=== PATIENT | female | born 1960 | race Caucasian/White ===

== ENCOUNTER 2023-04-15 19:56 | Inpatient (IN) | payer OTHER ==
[~2023-04-15] VITALS: Ht 167.6 cm; Wt 83.9 kg
[2023-04-15 20:00] VITALS: BP 164/73; PULSE 109; RESP 27; O2SAT 100
[2023-04-15 20:04] VITALS: BP 152/88; PULSE 104; RESP 19; TEMP 98.4; O2SAT 99
[2023-04-15] MEDS: MORPHINE SULFATE 4 MG/ML SYR IVP ONE (20:46)
[2023-04-15 21:04] LABS: BLOOD GAS BASE EXCESS 1.4 mmol/L (-2.0-2.0); BLOOD GAS HCO3 25.6 mmol/L (22-26); BLOOD GAS PCO2 38.7 mmHg (35-45); BLOOD GAS PH 7.439 (7.35-7.45); BLOOD GAS PO2 79.6 mmHg (75-100)
[2023-04-15 21:05] LABS: BLOOD GAS O2 SAT% 95.3 % (92.0-98.5)
[2023-04-15 21:09] LABS: BASOPHILS % (AUTO) 0.1 % (0.0-2.0); LYMPHOCYTES # (AUTO) 0.6 K/uL (2.5-16.5); LYMPHOCYTES % (AUTO) 7.9 % (20.5-51.1); MEAN CORPUSCULAR HEMOGLOBIN 29 pg (27-31); MEAN CORPUSCULAR HGB CONC 34 g/dL (33-37); MEAN CORPUSCULAR VOLUME 85.4 fL (80-94); MONOCYTES # (AUTO) 0.7 K/uL (0.8-1.0); MONOCYTES % (AUTO) 10.3 % (1.7-9.3); NEUTROPHILS # (AUTO) 5.8 K/uL (1.8-7.7); NEUTROPHILS % (AUTO) 81.7 % (42.2-75.2); PLATELET COUNT (AUTO) 146 K/uL (140-450); RED BLOOD CELL COUNT(AUTO) 1.97 MIL/uL (4.20-5.40); WHITE BLOOD COUNT (AUTO) 7.1 K/uL (4.8-10.8)
[2023-04-15 21:14] LABS: HEMATOCRIT 16.8 % (36-48); HEMOGLOBIN 5.7 g/dL (12.0-16.0)
[2023-04-15 21:17] LABS: ANION GAP 7.4 (8-16); CALCIUM 8.3 mg/dL (8.5-10.1); CARBON DIOXIDE 29.4 mmol/L (21-32); CREATININE 0.7 mg/dL (0.6-1.3); POTASSIUM 4.8 mmol/L (3.5-5.1)
[2023-04-15 21:20] LABS: INR 1.19 (0.8-1.2); PARTIAL THROMBOPLASTIN TIME 32.3 secs (22-35.6); PROTHROMBIN TIME 12.4 secs (10.8-13.4)
[2023-04-15 21:25] LABS: LACTIC ACID 0.6 mmol/L (0.4-2.0)
[2023-04-15] MEDS ORDERED: ONDANSETRON 4 MG/2 ML VIAL IVP PRN (21:25)
[2023-04-15] MEDS ORDERED: KCL 20 MEQ IN 100 mL PREMIX 200 ML IV PRN (21:25)
[2023-04-15] MEDS ORDERED: MAGNESIUM OXIDE 400 MG TAB PO PRN (21:25)
[2023-04-15] MEDS ORDERED: MAG SULF 2000 MG/WATER PREMIX 50 ML IV PRN (21:25)
[2023-04-15 21:26] LABS: ALANINE AMINOTRANSFERASE 11 U/L (12-78); ALBUMIN 1.4 g/dL (3.4-5.0); ALKALINE PHOSPHATASE 102 U/L (50-136); ASPARTATE AMINOTRANSFERASE 25 U/L (15-37); BILIRUBIN,DIRECT 0.4 mg/dL (0.0-0.3); TOTAL BILIRUBIN 0.7 mg/dL (0.0-1.0); TOTAL PROTEIN, SERUM 7.2 g/dL (6.4-8.2)
[2023-04-15 21:43] VITALS: O2SAT 98
[2023-04-15] MEDS: LORazepam 2 MG/ML VIAL IVP ONE (22:00)
[2023-04-15 23:35] VITALS: PULSE 102; RESP 21; O2SAT 93
[2023-04-15 23:40] VITALS: PULSE 105; O2SAT 100
[2023-04-15 23:41] VITALS: PULSE 105
[2023-04-16] VITALS (15 sets, daily range): BP systolic 127–167; BP diastolic 43–93; PULSE 76–117; RESP 20–28; TEMP 96.9–99.2; O2SAT 93–100
[2023-04-16] MEDS: HYDROcodone/APAP 5/325 MG 1 TAB TAB PO PRN (00:13)
[2023-04-16] MEDS: ALBUTEROL SULFATE/IPRATROPIU 3 ML SOL IH ONE (01:52)
[2023-04-16] MEDS: LORazepam 1 MG TAB GT ONE (02:47)
[2023-04-16 03:48] LABS: BASOPHILS % (AUTO) 0.1 % (0.0-2.0); EOSINOPHILS % (AUTO) 0.2 % (0.0-4.0); LYMPHOCYTES # (AUTO) 0.5 K/uL (2.5-16.5); LYMPHOCYTES % (AUTO) 8.1 % (20.5-51.1); MEAN CORPUSCULAR HEMOGLOBIN 30 pg (27-31); MEAN CORPUSCULAR HGB CONC 34 g/dL (33-37); MONOCYTES # (AUTO) 0.7 K/uL (0.8-1.0); MONOCYTES % (AUTO) 12.1 % (1.7-9.3); NEUTROPHILS # (AUTO) 4.9 K/uL (1.8-7.7); NEUTROPHILS % (AUTO) 79.5 % (42.2-75.2); PLATELET COUNT (AUTO) 115 K/uL (140-450); RED BLOOD CELL COUNT(AUTO) 1.95 MIL/uL (4.20-5.40); RED CELL DISTRIBUTION WIDTH 18.7 % (11.6-13.7); WHITE BLOOD COUNT (AUTO) 6.2 K/uL (4.8-10.8)
[2023-04-16 03:54] LABS: HEMOGLOBIN 5.7 g/dL (12.0-16.0)
[2023-04-16 03:57] LABS: HEMATOCRIT 17.1 % (36-48)
[2023-04-16 04:08] LABS: MAGNESIUM 1.8 mg/dL (1.8-2.4); PHOSPHORUS 4.2 mg/dL (2.5-4.9)
[2023-04-16 04:09] LABS: ANION GAP 6.4 (8-16); CALCIUM 8.1 mg/dL (8.5-10.1); CARBON DIOXIDE 30.2 mmol/L (21-32); CREATININE 0.6 mg/dL (0.6-1.3); POTASSIUM 4.6 mmol/L (3.5-5.1)
[2023-04-16] MEDS: ALBUTEROL SULFATE/IPRATROPIU 3 ML SOL IH SCH (08:23)
[2023-04-16] MEDS: MORPHINE SULFATE 4 MG/ML SYR IVP PRN ×2 (12:54→20:35)
[2023-04-16] MEDS: PANTOPRAZOLE 40 MG INJ VIAL IVP SCH (13:25)
[2023-04-16] MEDS: FUROSEMIDE 20 MG/2 ML VIAL IVP ONE (15:52)
[2023-04-16] MEDS: LORazepam 2 MG/ML VIAL IVP SCH (17:40)
[2023-04-16] MEDS: MAG SULF 2000 MG/WATER PREMIX 50 ML IV ONE (17:48)
[2023-04-16] MEDS: LEVALBUTEROL 1.25 MG/0.5 ML NEBU INH SCH (19:53)
[2023-04-16] MEDS: IPRATROPIUM 0.02% 0.5 MG/2.5 ML NEBU INH SCH (19:54)
[2023-04-16] MEDS: FAMOTIDINE 20 MG TAB GT SCH (20:31)
[2023-04-16] MEDS: FUROSEMIDE 20 MG/2 ML VIAL IVP SCH (20:32)
[2023-04-16 21:21] LABS: HEMATOCRIT 24.8 % (36-48); HEMOGLOBIN 8.3 g/dL (12.0-16.0); LYMPHOCYTES # (AUTO) 0.7 K/uL (2.5-16.5); LYMPHOCYTES % (AUTO) 5.3 % (20.5-51.1); MEAN CORPUSCULAR HEMOGLOBIN 30 pg (27-31); MEAN CORPUSCULAR HGB CONC 34 g/dL (33-37); MEAN CORPUSCULAR VOLUME 88.2 fL (80-94); MONOCYTES % (AUTO) 8.1 % (1.7-9.3); NEUTROPHILS # (AUTO) 10.8 K/uL (1.8-7.7); NEUTROPHILS % (AUTO) 86.6 % (42.2-75.2); PLATELET COUNT (AUTO) 181 K/uL (140-450); RED BLOOD CELL COUNT(AUTO) 2.81 MIL/uL (4.20-5.40); RED CELL DISTRIBUTION WIDTH 17.8 % (11.6-13.7); WHITE BLOOD COUNT (AUTO) 12.5 K/uL (4.8-10.8)
[2023-04-16 21:47] LABS: BILIRUBIN,URINE NEGATIVE (NEGATIVE); BLOOD, URINE 1+ (NEGATIVE); COLOR,URINE YELLOW (YELLOW); LEUKOCYTE ESTERASE ,URINE 3+ (NEGATIVE); NITRITE, URINE NEGATIVE (NEGATIVE); PROTEIN,URINE TRACE (NEGATIVE); UGLUCOSE NEGATIVE (NEGATIVE); UROBILINOGEN,URINE 0.2 EU/dL (0.2 - 1)
[2023-04-16 21:48] LABS: APPEARANCE,URINE SLIGHTLY CLOUDY (CLEAR)
[2023-04-16 21:56] LABS: BACTERIA,URINE 10-30 (MOD) /HPF (None Seen); SQUAMOUS EPITHELIAL CELL,UR 0-3 (FEW) /LPF (0-3 (FEW))
[2023-04-17] VITALS (16 sets, daily range): BP systolic 94–158; BP diastolic 42–67; PULSE 69–113; RESP 20–25; TEMP 96.7–98.4; O2SAT 91–100
[2023-04-17] MEDS: ALPRAZolam 0.5 MG TAB GT PRN (03:02)
[2023-04-17] MEDS ORDERED: MAGN400S60 GT (03:46)
[2023-04-17] MEDS ORDERED: AMLO5TAB GT (03:46)
[2023-04-17] MEDS ORDERED: CARV6.25 GT (03:46)
[2023-04-17] MEDS ORDERED: CLON0.1T16 GT (03:46)
[2023-04-17] MEDS ORDERED: ASPI-1822 GT (03:46)
[2023-04-17] MEDS ORDERED: NUTR-298 GT (03:46)
[2023-04-17] MEDS ORDERED: LANS15EC28 GT (03:46)
[2023-04-17] MEDS ORDERED: EPOE2000 SUBQ (03:46)
[2023-04-17] MEDS ORDERED: FURO-570 GT (03:46)
[2023-04-17] MEDS ORDERED: DOCU50LI8 GT (03:46)
[2023-04-17] MEDS ORDERED: LORA-476 GT (03:46)
[2023-04-17] MEDS ORDERED: PUL.25N INH (03:46)
[2023-04-17] MEDS ORDERED: MONT-72 GT (05:03)
[2023-04-17] MEDS ORDERED: COLL30OI TP (05:03)
[2023-04-17] MEDS ORDERED: TUBE5SOL12 TD (05:03)
[2023-04-17] MEDS ORDERED: MODA200T52 GT (05:03)
[2023-04-17] MEDS ORDERED: ACETAMINOPHEN (05:03)
[2023-04-17] MEDS ORDERED: TRAM-748 GT (05:03)
[2023-04-17] MEDS ORDERED: ACET-7771 GT (05:06)
[2023-04-17 05:35] LABS: BASOPHILS % (AUTO) 0.1 % (0.0-2.0); HEMATOCRIT 22.7 % (36-48); HEMOGLOBIN 7.7 g/dL (12.0-16.0); LYMPHOCYTES # (AUTO) 0.6 K/uL (2.5-16.5); LYMPHOCYTES % (AUTO) 6.4 % (20.5-51.1); MEAN CORPUSCULAR HEMOGLOBIN 30 pg (27-31); MEAN CORPUSCULAR HGB CONC 34 g/dL (33-37); MEAN CORPUSCULAR VOLUME 88.8 fL (80-94); MONOCYTES # (AUTO) 1.1 K/uL (0.8-1.0); MONOCYTES % (AUTO) 10.9 % (1.7-9.3); NEUTROPHILS # (AUTO) 8.1 K/uL (1.8-7.7); NEUTROPHILS % (AUTO) 82.6 % (42.2-75.2); PLATELET COUNT (AUTO) 166 K/uL (140-450); RED BLOOD CELL COUNT(AUTO) 2.56 MIL/uL (4.20-5.40); RED CELL DISTRIBUTION WIDTH 17.9 % (11.6-13.7); WHITE BLOOD COUNT (AUTO) 9.8 K/uL (4.8-10.8)
[2023-04-17 07:20] LABS: ANION GAP 8.3 (8-16); CALCIUM 8.4 mg/dL (8.5-10.1); CARBON DIOXIDE 28.5 mmol/L (21-32); CREATININE 0.9 mg/dL (0.6-1.3); POTASSIUM 4.8 mmol/L (3.5-5.1)
[2023-04-17 07:21] LABS: MAGNESIUM 2.2 mg/dL (1.8-2.4); PHOSPHORUS 5.1 mg/dL (2.5-4.9)
[2023-04-17] MEDS ORDERED: NOREPINEPHRINE 4 MG in DEXTROSE 5% 250 ML IV PRN (11:55)
[2023-04-17] MEDS: NOREPINEPHRINE 4 MG/4 ML VIAL IV ONE ×2 (12:45→12:47)
[2023-04-17] MEDS: NOREPINEPHRINE 16 MG in DEXTROSE 5% 250 ML IV PRN (12:50)
[2023-04-17] MEDS: LACTULOSE 20 GM/30 ML UDC PO SCH ×2 (16:02→21:00)
[2023-04-17 16:19] LABS: BLOOD GAS BASE EXCESS -1.8 mmol/L (-2.0-2.0); BLOOD GAS HCO3 22.4 mmol/L (22-26); BLOOD GAS O2 SAT% 99.1 % (92.0-98.5); BLOOD GAS PCO2 35.3 mmHg (35-45); BLOOD GAS PO2 139.1 mmHg (75-100)
[2023-04-17] MEDS: MIDODRINE 5 MG TAB PO SCH (17:27)
[2023-04-17] MEDS: PIPERACILLIN/TAZOBACTAM 3.375 GM in DEXTROSE 5% 50 ML IV SCH (17:58)
[2023-04-17] MEDS ORDERED: MIDODRINE 5 MG TAB PO SCH (18:00)
[2023-04-18] VITALS (34 sets, daily range): BP systolic 104–159; BP diastolic 39–76; PULSE 72–133; RESP 16–24; TEMP 96–98.6; O2SAT 92–100
[2023-04-18 04:45] LABS: BASOPHILS % (AUTO) 0.1 % (0.0-2.0); HEMATOCRIT 20.9 % (36-48); HEMOGLOBIN 7.1 g/dL (12.0-16.0); LYMPHOCYTES # (AUTO) 0.7 K/uL (2.5-16.5); LYMPHOCYTES % (AUTO) 7.8 % (20.5-51.1); MEAN CORPUSCULAR HEMOGLOBIN 30 pg (27-31); MEAN CORPUSCULAR HGB CONC 34 g/dL (33-37); MEAN CORPUSCULAR VOLUME 89.6 fL (80-94); MONOCYTES % (AUTO) 10.6 % (1.7-9.3); NEUTROPHILS # (AUTO) 7.6 K/uL (1.8-7.7); NEUTROPHILS % (AUTO) 81.5 % (42.2-75.2); PLATELET COUNT (AUTO) 163 K/uL (140-450); RED BLOOD CELL COUNT(AUTO) 2.34 MIL/uL (4.20-5.40); RED CELL DISTRIBUTION WIDTH 17.9 % (11.6-13.7); WHITE BLOOD COUNT (AUTO) 9.3 K/uL (4.8-10.8)
[2023-04-18 05:30] LABS: ANION GAP 7.6 (8-16); CALCIUM 7.9 mg/dL (8.5-10.1); CARBON DIOXIDE 30.1 mmol/L (21-32); CREATININE 1.1 mg/dL (0.6-1.3); POTASSIUM 4.7 mmol/L (3.5-5.1)
[2023-04-18 05:36] LABS: MAGNESIUM 2.4 mg/dL (1.8-2.4); PHOSPHORUS 4.9 mg/dL (2.5-4.9)
[2023-04-18 06:02] LABS: LACTIC ACID 0.9 mmol/L (0.4-2.0)
[2023-04-18] MEDS: FUROSEMIDE 40 MG/4 ML VIAL IVP SCH (10:10)
[2023-04-18] MEDS: RIFAXIMIN 550 MG TAB GT SCH (12:05)
[2023-04-18 13:45] LABS: BLOOD GAS PH 7.304 (7.35-7.45)
[2023-04-18 13:46] LABS: BLOOD GAS BASE EXCESS 1.8 mmol/L (-2.0-2.0); BLOOD GAS HCO3 28.7 mmol/L (22-26); BLOOD GAS O2 SAT% 98.2 % (92.0-98.5); BLOOD GAS PCO2 59.1 mmHg (35-45); BLOOD GAS PO2 115.6 mmHg (75-100)
[2023-04-18] MEDS: SODIUM BICARBONATE 8.4% PFS 50 MEQ/50 ML SYR IVP SCH (14:49)
[2023-04-18] MEDS: methylPREDNISolone SS 40 MG/ML VIAL IVP SCH (14:56)
[2023-04-18 17:14] LABS: BASOPHILS % (AUTO) 0.1 % (0.0-2.0); HEMATOCRIT 24.9 % (36-48); HEMOGLOBIN 8.4 g/dL (12.0-16.0); LYMPHOCYTES # (AUTO) 0.5 K/uL (2.5-16.5); LYMPHOCYTES % (AUTO) 6.4 % (20.5-51.1); MEAN CORPUSCULAR HEMOGLOBIN 29 pg (27-31); MEAN CORPUSCULAR HGB CONC 34 g/dL (33-37); MEAN CORPUSCULAR VOLUME 87.1 fL (80-94); MONOCYTES # (AUTO) 0.5 K/uL (0.8-1.0); MONOCYTES % (AUTO) 6.9 % (1.7-9.3); NEUTROPHILS # (AUTO) 6.8 K/uL (1.8-7.7); NEUTROPHILS % (AUTO) 86.6 % (42.2-75.2); PLATELET COUNT (AUTO) 156 K/uL (140-450); RED BLOOD CELL COUNT(AUTO) 2.86 MIL/uL (4.20-5.40); RED CELL DISTRIBUTION WIDTH 18.9 % (11.6-13.7); WHITE BLOOD COUNT (AUTO) 7.8 K/uL (4.8-10.8)
[2023-04-19] VITALS (33 sets, daily range): BP systolic 89–144; BP diastolic 43–73; PULSE 82–134; RESP 17–27; TEMP 96.9–100.6; O2SAT 97–100
[2023-04-19] MEDS: METOPROLOL 5 MG/5 ML VIAL IVP PRN (03:08)
[2023-04-19 05:35] LABS: BASOPHILS % (AUTO) 0.2 % (0.0-2.0); EOSINOPHILS % (AUTO) 0.1 % (0.0-4.0); HEMATOCRIT 26.1 % (36-48); LYMPHOCYTES # (AUTO) 0.4 K/uL (2.5-16.5); LYMPHOCYTES % (AUTO) 5.8 % (20.5-51.1); MEAN CORPUSCULAR HEMOGLOBIN 30 pg (27-31); MEAN CORPUSCULAR HGB CONC 34 g/dL (33-37); MEAN CORPUSCULAR VOLUME 87.2 fL (80-94); MONOCYTES # (AUTO) 0.2 K/uL (0.8-1.0); MONOCYTES % (AUTO) 2.3 % (1.7-9.3); NEUTROPHILS # (AUTO) 6.3 K/uL (1.8-7.7); NEUTROPHILS % (AUTO) 91.6 % (42.2-75.2); PLATELET COUNT (AUTO) 157 K/uL (140-450); RED BLOOD CELL COUNT(AUTO) 2.99 MIL/uL (4.20-5.40); RED CELL DISTRIBUTION WIDTH 19.3 % (11.6-13.7); WHITE BLOOD COUNT (AUTO) 6.9 K/uL (4.8-10.8)
[2023-04-19 05:40] LABS: MAGNESIUM 2.2 mg/dL (1.8-2.4); PHOSPHORUS 5.1 mg/dL (2.5-4.9)
[2023-04-19 06:02] LABS: ANION GAP 9.8 (8-16); CALCIUM 8.7 mg/dL (8.5-10.1); CARBON DIOXIDE 30.4 mmol/L (21-32); CREATININE 1.2 mg/dL (0.6-1.3); POTASSIUM 4.2 mmol/L (3.5-5.1)
[2023-04-19 09:34] LABS: BLOOD GAS PCO2 49.4 mmHg (35-45); BLOOD GAS PH 7.393 (7.35-7.45); BLOOD GAS PO2 154.4 mmHg (75-100)
[2023-04-19 09:35] LABS: BLOOD GAS BASE EXCESS 3.9 mmol/L (-2.0-2.0); BLOOD GAS HCO3 29.4 mmol/L (22-26); BLOOD GAS O2 SAT% 99.2 % (92.0-98.5)
[2023-04-19] MEDS ORDERED: clonazePAM 0.5 MG TAB PO SCH (13:00)
[2023-04-19] MEDS: CLONAZEPAM 2 MG PO SCH (13:28)
[2023-04-19] MEDS: levETIRAcetam 1,000 MG in NACL 0.9% 100 ML IV SCH (13:28)
[2023-04-19] MEDS: THERAHONEY GEL 42.5 GM TP SCH (18:52)
[2023-04-20] VITALS (36 sets, daily range): BP systolic 127–150; BP diastolic 42–76; PULSE 86–104; RESP 20–24; TEMP 96.6–98.4; O2SAT 97–100
[2023-04-20 06:49] LABS: MAGNESIUM 2.1 mg/dL (1.8-2.4); PHOSPHORUS 4.4 mg/dL (2.5-4.9)
[2023-04-20 06:56] LABS: ANION GAP 9.2 (8-16); CALCIUM 8.4 mg/dL (8.5-10.1); CARBON DIOXIDE 33.3 mmol/L (21-32); CREATININE 1.3 mg/dL (0.6-1.3); POTASSIUM 3.5 mmol/L (3.5-5.1)
[2023-04-20 07:13] LABS: BASOPHILS % (AUTO) 0.3 % (0.0-2.0); HEMATOCRIT 23.9 % (36-48); LYMPHOCYTES # (AUTO) 0.4 K/uL (2.5-16.5); LYMPHOCYTES % (AUTO) 5.8 % (20.5-51.1); MEAN CORPUSCULAR HEMOGLOBIN 30 pg (27-31); MEAN CORPUSCULAR HGB CONC 34 g/dL (33-37); MONOCYTES # (AUTO) 0.3 K/uL (0.8-1.0); MONOCYTES % (AUTO) 4.4 % (1.7-9.3); NEUTROPHILS # (AUTO) 6.5 K/uL (1.8-7.7); NEUTROPHILS % (AUTO) 89.5 % (42.2-75.2); PLATELET COUNT (AUTO) 138 K/uL (140-450); RED BLOOD CELL COUNT(AUTO) 2.69 MIL/uL (4.20-5.40); WHITE BLOOD COUNT (AUTO) 7.2 K/uL (4.8-10.8)
[2023-04-21] VITALS (23 sets, daily range): BP systolic 122–150; BP diastolic 46–72; PULSE 80–98; RESP 20–22; TEMP 96.9–98.1; O2SAT 96–100
[2023-04-21 09:32] LABS: BASOPHILS % (AUTO) 0.2 % (0.0-2.0); HEMATOCRIT 25.6 % (36-48); HEMOGLOBIN 8.6 g/dL (12.0-16.0); LYMPHOCYTES # (AUTO) 0.4 K/uL (2.5-16.5); LYMPHOCYTES % (AUTO) 6.2 % (20.5-51.1); MEAN CORPUSCULAR HEMOGLOBIN 30 pg (27-31); MEAN CORPUSCULAR HGB CONC 34 g/dL (33-37); MEAN CORPUSCULAR VOLUME 88.8 fL (80-94); MONOCYTES # (AUTO) 0.3 K/uL (0.8-1.0); MONOCYTES % (AUTO) 4.2 % (1.7-9.3); NEUTROPHILS # (AUTO) 5.6 K/uL (1.8-7.7); NEUTROPHILS % (AUTO) 89.4 % (42.2-75.2); PLATELET COUNT (AUTO) 136 K/uL (140-450); RED BLOOD CELL COUNT(AUTO) 2.88 MIL/uL (4.20-5.40); RED CELL DISTRIBUTION WIDTH 19.3 % (11.6-13.7); WHITE BLOOD COUNT (AUTO) 6.2 K/uL (4.8-10.8)
[2023-04-21 09:41] LABS: CALCIUM 8.4 mg/dL (8.5-10.1); CARBON DIOXIDE 31.1 mmol/L (21-32); CREATININE 1.6 mg/dL (0.6-1.3); POTASSIUM 3.1 mmol/L (3.5-5.1)
[2023-04-21] MEDS: POTASSIUM CHLORIDE 10 MEQ TABER PO PRN (12:31)
[2023-04-21] MEDS: POTASSIUM CHLORIDE 20% 40 MEQ/15 ML UDC GT PRN (15:50)
[2023-04-21] MEDS: PIPERACILLIN/TAZOBACTAM 3.375 GM in DEXTROSE 5% 50 ML IV SCH (22:21)
[2023-04-22] VITALS (16 sets, daily range): BP systolic 134–148; BP diastolic 55–59; PULSE 89–132; RESP 19–20; TEMP 97.1–98.6; O2SAT 94–99
[2023-04-22] MEDS ORDERED: FUROSEMIDE 40 MG/4 ML VIAL IVP SCH (09:00)
[2023-04-22] MEDS: methylPREDNISolone SS 40 MG/ML VIAL IVP SCH (09:19)
[2023-04-22] MEDS: ALPRAZolam 0.5 MG TAB GT PRN (12:54)
[2023-04-22] MEDS: ACETAMINOPHEN 325 MG TAB PO PRN (21:19)
[2023-04-23] VITALS (17 sets, daily range): BP systolic 115–143; BP diastolic 52–58; PULSE 90–139; RESP 20–22; TEMP 96.9–97.9; O2SAT 94–97
[2023-04-23 05:27] LABS: BASOPHILS % (AUTO) 0.2 % (0.0-2.0); HEMATOCRIT 23.5 % (36-48); HEMOGLOBIN 7.9 g/dL (12.0-16.0); LYMPHOCYTES # (AUTO) 0.5 K/uL (2.5-16.5); MEAN CORPUSCULAR HEMOGLOBIN 30 pg (27-31); MEAN CORPUSCULAR HGB CONC 34 g/dL (33-37); MEAN CORPUSCULAR VOLUME 89.9 fL (80-94); MONOCYTES # (AUTO) 0.4 K/uL (0.8-1.0); MONOCYTES % (AUTO) 9.8 % (1.7-9.3); NEUTROPHILS # (AUTO) 3.4 K/uL (1.8-7.7); PLATELET COUNT (AUTO) 96 K/uL (140-450); RED BLOOD CELL COUNT(AUTO) 2.61 MIL/uL (4.20-5.40); WHITE BLOOD COUNT (AUTO) 4.3 K/uL (4.8-10.8)
[2023-04-23 05:44] LABS: ANION GAP 12.3 (8-16); CALCIUM 8.6 mg/dL (8.5-10.1); CARBON DIOXIDE 32.4 mmol/L (21-32); CREATININE 2.3 mg/dL (0.6-1.3); POTASSIUM 3.7 mmol/L (3.5-5.1)
[2023-04-23] MEDS: NACL 0.45% 1,000 ML IV SCH (10:51)
[2023-04-23] MEDS: METOPROLOL 50 MG TAB GT SCH (12:48)
[2023-04-23] MEDS: IPRATROPIUM 0.02% 0.5 MG/2.5 ML NEBU INH SCH (13:20)
[2023-04-23] MEDS: LEVALBUTEROL 1.25 MG/0.5 ML NEBU INH SCH (13:20)
[2023-04-23] MEDS: METOPROLOL 50 MG TAB PO SCH (20:28)
[2023-04-23] MEDS ORDERED: METOPROLOL SUCCINATE 50 MG TABER PO SCH (21:00)
[2023-04-24] VITALS (23 sets, daily range): BP systolic 136–165; BP diastolic 48–65; PULSE 96–127; RESP 20–29; TEMP 96.5–102.9; O2SAT 92–100
[2023-04-24] MEDS: methylPREDNISolone SS 40 MG/ML VIAL IVP SCH (09:01)
[2023-04-24] MEDS: DILTIAZEM 25 MG/5 ML VIAL IVP SCH (10:22)
[2023-04-24 10:38] LABS: ANION GAP 17.7 (8-16); CALCIUM 8.7 mg/dL (8.5-10.1); CARBON DIOXIDE 25.9 mmol/L (21-32); CREATININE 2.8 mg/dL (0.6-1.3); POTASSIUM 4.6 mmol/L (3.5-5.1)
[2023-04-24] MEDS ORDERED: CLINICAL MONITORING MC PRN (11:15)
[2023-04-24] MEDS: PIPERACILLIN/TAZOBACTAM 2.25 GM in DEXTROSE 5% 50 ML IV SCH (11:57)
[2023-04-24] MEDS: Z-GUARD PASTE TP PRN (13:58)
[2023-04-24] MEDS: DIGOXIN 0.25 MG/ML AMP IV SCH ×2 (17:05→23:32)
[2023-04-24] MEDS: METOPROLOL 50 MG TAB PO SCH (21:13)
[2023-04-25] VITALS (18 sets, daily range): BP systolic 129–167; BP diastolic 27–50; PULSE 62–110; RESP 21–27; TEMP 97.5–101.3; O2SAT 96–100
[2023-04-25 05:12] LABS: BASOPHILS % (AUTO) 0.4 % (0.0-2.0); HEMOGLOBIN 8.1 g/dL (12.0-16.0); LYMPHOCYTES # (AUTO) 0.8 K/uL (2.5-16.5); LYMPHOCYTES % (AUTO) 9.8 % (20.5-51.1); MEAN CORPUSCULAR HEMOGLOBIN 31 pg (27-31); MEAN CORPUSCULAR HGB CONC 32 g/dL (33-37); MEAN CORPUSCULAR VOLUME 94.3 fL (80-94); MONOCYTES # (AUTO) 0.8 K/uL (0.8-1.0); MONOCYTES % (AUTO) 10.4 % (1.7-9.3); NEUTROPHILS # (AUTO) 6.2 K/uL (1.8-7.7); NEUTROPHILS % (AUTO) 79.4 % (42.2-75.2); PLATELET COUNT (AUTO) 109 K/uL (140-450); RED BLOOD CELL COUNT(AUTO) 2.65 MIL/uL (4.20-5.40); RED CELL DISTRIBUTION WIDTH 22.6 % (11.6-13.7); WHITE BLOOD COUNT (AUTO) 7.7 K/uL (4.8-10.8)
[2023-04-25] MEDS: DIGOXIN 0.25 MG/ML AMP IV SCH (05:19)
[2023-04-25 05:25] LABS: ANION GAP 19.6 (8-16); CREATININE 3.5 mg/dL (0.6-1.3); POTASSIUM 4.6 mmol/L (3.5-5.1)
[2023-04-26] VITALS (17 sets, daily range): BP systolic 129–146; BP diastolic 27–69; PULSE 59–88; RESP 19–27; TEMP 97.1–98.9; O2SAT 97–100
[2023-04-27] VITALS (18 sets, daily range): BP systolic 128–176; BP diastolic 39–47; PULSE 54–82; RESP 20–24; TEMP 97–97.9; O2SAT 94–100
[2023-04-27 06:40] LABS: ANION GAP 19.5 (8-16); CARBON DIOXIDE 24.6 mmol/L (21-32); POTASSIUM 4.1 mmol/L (3.5-5.1)
[2023-04-27 07:27] LABS: CALCIUM 7.8 mg/dL (8.5-10.1)
[2023-04-27 07:32] LABS: CREATININE 4.2 mg/dL (0.6-1.3)
[2023-04-28] VITALS (13 sets, daily range): BP systolic 159–182; BP diastolic 28–47; PULSE 57–80; RESP 19–24; TEMP 97–97.4; O2SAT 92–99
[2023-04-28] MEDS: hydrALAZINE 20 MG/ML VIAL IVP PRN ×2 (04:36→15:02)
[2023-04-28 06:50] LABS: ANION GAP 24.1 (8-16); CALCIUM 8.3 mg/dL (8.5-10.1); POTASSIUM 4.1 mmol/L (3.5-5.1)
[2023-04-28 06:55] LABS: CREATININE 4.3 mg/dL (0.6-1.3)
[2023-04-28 07:03] LABS: BASOPHILS # (AUTO) 0.2 K/uL (0.00-0.22); BASOPHILS % (AUTO) 1.4 % (0.0-2.0); HEMATOCRIT 31.2 % (36-48); HEMOGLOBIN 10.3 g/dL (12.0-16.0); LYMPHOCYTES # (AUTO) 0.4 K/uL (2.5-16.5); LYMPHOCYTES % (AUTO) 2.9 % (20.5-51.1); MEAN CORPUSCULAR HEMOGLOBIN 30 pg (27-31); MEAN CORPUSCULAR HGB CONC 33 g/dL (33-37); MEAN CORPUSCULAR VOLUME 91.4 fL (80-94); MONOCYTES # (AUTO) 0.7 K/uL (0.8-1.0); MONOCYTES % (AUTO) 4.9 % (1.7-9.3); NEUTROPHILS # (AUTO) 13.4 K/uL (1.8-7.7); NEUTROPHILS % (AUTO) 90.8 % (42.2-75.2); PLATELET COUNT (AUTO) 232 K/uL (140-450); RED BLOOD CELL COUNT(AUTO) 3.42 MIL/uL (4.20-5.40); RED CELL DISTRIBUTION WIDTH 22.7 % (11.6-13.7); WHITE BLOOD COUNT (AUTO) 14.8 K/uL (4.8-10.8)
[2023-04-28 08:12] LABS: MAGNESIUM 2.7 mg/dL (1.8-2.4)
[2023-04-28 08:22] LABS: PHOSPHORUS 10.5 mg/dL (2.5-4.9)
[2023-04-28] MEDS: NACL 0.9% 500 ML IV SCH (10:25)
[2023-04-28] MEDS ORDERED: hydrALAZINE 20 MG/ML VIAL IVP PRN (14:50)
[2023-04-28] MEDS: OLANZapine 2.5 MG TAB PO SCH (21:11)
[2023-04-29] VITALS (13 sets, daily range): BP systolic 157–173; BP diastolic 42–47; PULSE 59–82; RESP 20–25; TEMP 96.9–97.5; O2SAT 91–99
[2023-04-29 05:54] LABS: BASOPHILS # (AUTO) 0.2 K/uL (0.00-0.22); BASOPHILS % (AUTO) 1.4 % (0.0-2.0); HEMATOCRIT 28.8 % (36-48); HEMOGLOBIN 9.6 g/dL (12.0-16.0); LYMPHOCYTES # (AUTO) 0.4 K/uL (2.5-16.5); LYMPHOCYTES % (AUTO) 2.6 % (20.5-51.1); MEAN CORPUSCULAR HEMOGLOBIN 30 pg (27-31); MEAN CORPUSCULAR HGB CONC 33 g/dL (33-37); MEAN CORPUSCULAR VOLUME 90.9 fL (80-94); MONOCYTES # (AUTO) 0.5 K/uL (0.8-1.0); MONOCYTES % (AUTO) 3.6 % (1.7-9.3); NEUTROPHILS # (AUTO) 13.2 K/uL (1.8-7.7); NEUTROPHILS % (AUTO) 92.4 % (42.2-75.2); PLATELET COUNT (AUTO) 180 K/uL (140-450); RED BLOOD CELL COUNT(AUTO) 3.17 MIL/uL (4.20-5.40); RED CELL DISTRIBUTION WIDTH 22.7 % (11.6-13.7); WHITE BLOOD COUNT (AUTO) 14.3 K/uL (4.8-10.8)
[2023-04-29 06:23] LABS: ANION GAP 25.2 (8-16); CALCIUM 8.4 mg/dL (8.5-10.1); POTASSIUM 4.2 mmol/L (3.5-5.1)
[2023-04-29 06:27] LABS: CREATININE 4.7 mg/dL (0.6-1.3)
[2023-04-29 06:48] LABS: MAGNESIUM 2.6 mg/dL (1.8-2.4)
[2023-04-29 06:51] LABS: PHOSPHORUS 10.8 mg/dL (2.5-4.9)
[2023-04-30] VITALS (12 sets, daily range): BP systolic 159; BP diastolic 35; PULSE 53–70; RESP 20–23; TEMP 97.3–97.8; O2SAT 88–96
[2023-04-30 05:58] LABS: BASOPHILS # (AUTO) 0.1 K/uL (0.00-0.22); BASOPHILS % (AUTO) 0.4 % (0.0-2.0); HEMATOCRIT 26.9 % (36-48); HEMOGLOBIN 8.8 g/dL (12.0-16.0); LYMPHOCYTES # (AUTO) 0.3 K/uL (2.5-16.5); LYMPHOCYTES % (AUTO) 1.8 % (20.5-51.1); MEAN CORPUSCULAR HEMOGLOBIN 31 pg (27-31); MEAN CORPUSCULAR HGB CONC 33 g/dL (33-37); MEAN CORPUSCULAR VOLUME 93.3 fL (80-94); MONOCYTES # (AUTO) 0.5 K/uL (0.8-1.0); MONOCYTES % (AUTO) 3.8 % (1.7-9.3); NEUTROPHILS # (AUTO) 13.4 K/uL (1.8-7.7); PLATELET COUNT (AUTO) 127 K/uL (140-450); RED BLOOD CELL COUNT(AUTO) 2.88 MIL/uL (4.20-5.40); RED CELL DISTRIBUTION WIDTH 23.5 % (11.6-13.7); WHITE BLOOD COUNT (AUTO) 14.3 K/uL (4.8-10.8)
[2023-04-30 06:57] LABS: MAGNESIUM 2.6 mg/dL (1.8-2.4)
[2023-04-30 06:59] LABS: ANION GAP 24.9 (8-16); CALCIUM 8.3 mg/dL (8.5-10.1); CARBON DIOXIDE 18.3 mmol/L (21-32); POTASSIUM 4.2 mmol/L (3.5-5.1)
[2023-04-30 07:01] LABS: CREATININE 4.8 mg/dL (0.6-1.3); PHOSPHORUS 11.3 mg/dL (2.5-4.9)
[2023-05-01] VITALS (27 sets, daily range): BP systolic 148–199; BP diastolic 41–88; PULSE 53–66; RESP 16–26; TEMP 96.1–98.2; O2SAT 90–100
[2023-05-01] MEDS ORDERED: traMADol 50 MG TAB GT PRN (03:40)
[2023-05-01] MEDS ORDERED: CLONIDINE HYDROCHLORIDE 0.1 MG TAB GT PRN (03:40)
[2023-05-01] MEDS ORDERED: LORazepam 1 MG TAB GT PRN (03:40)
[2023-05-01 06:22] LABS: BASOPHILS # (AUTO) 0.1 K/uL (0.00-0.22); BASOPHILS % (AUTO) 0.4 % (0.0-2.0); HEMATOCRIT 27.3 % (36-48); HEMOGLOBIN 8.9 g/dL (12.0-16.0); LYMPHOCYTES # (AUTO) 0.4 K/uL (2.5-16.5); LYMPHOCYTES % (AUTO) 2.1 % (20.5-51.1); MEAN CORPUSCULAR HEMOGLOBIN 31 pg (27-31); MEAN CORPUSCULAR HGB CONC 33 g/dL (33-37); MONOCYTES # (AUTO) 0.5 K/uL (0.8-1.0); MONOCYTES % (AUTO) 2.9 % (1.7-9.3); NEUTROPHILS # (AUTO) 16.3 K/uL (1.8-7.7); NEUTROPHILS % (AUTO) 94.6 % (42.2-75.2); PLATELET COUNT (AUTO) 147 K/uL (140-450); RED BLOOD CELL COUNT(AUTO) 2.91 MIL/uL (4.20-5.40); RED CELL DISTRIBUTION WIDTH 24.1 % (11.6-13.7); WHITE BLOOD COUNT (AUTO) 17.2 K/uL (4.8-10.8)
[2023-05-01 06:32] LABS: ANION GAP 21.8 (8-16); CALCIUM 8.4 mg/dL (8.5-10.1); POTASSIUM 3.8 mmol/L (3.5-5.1)
[2023-05-01 06:35] LABS: MAGNESIUM 2.6 mg/dL (1.8-2.4)
[2023-05-01 06:36] LABS: CREATININE 4.9 mg/dL (0.6-1.3)
[2023-05-01] MEDS: carvediloL 6.25 MG TAB GT SCH (09:00)
[2023-05-01] MEDS ORDERED: MODAFINIL 100 MG GT SCH (09:00)
[2023-05-01] MEDS: amLODIPine 5 MG TAB GT SCH (10:39)
[2023-05-01] MEDS: LORazepam 1 MG TAB PO SCH (10:40)
[2023-05-01] MEDS: FUROSEMIDE 40 MG/5 ML ORAL SOL UDC GT SCH (10:42)
[2023-05-01] MEDS: MONTELUKAST SODIUM 10 MG TAB GT SCH (10:43)
[2023-05-01] MEDS ORDERED: HYDROCOLLOID DRESSING TP PRN (13:25)
[2023-05-01] MEDS: THERAHONEY GEL 42.5 GM TP SCH (15:00)
[2023-05-01] MEDS: HYDROCOLLOID DRESSING TP SCH (15:00)
[2023-05-01] MEDS ORDERED: ATROPINE 0.5 MG/5 ML SYR IVP PRN (15:40)
[2023-05-01] MEDS: PIPERACILLIN/TAZOBACTAM 2.25 GM in DEXTROSE 5% 50 ML IV SCH (15:40)
[2023-05-01] MEDS ORDERED: DOPamine 400 MG/D5W PREMIX 250 ML IV PRN (15:40)
[2023-05-01] MEDS ORDERED: ATROPINE 0.4 MG/ML VIAL IVP PRN (17:30)
[2023-05-01] MEDS: THERAHONEY GEL 42.5 GM TP PRN (18:11)
[2023-05-01] MEDS ORDERED: NYSTATIN OINT 100 MU/GM 15 GM TUBE TP SCH (21:00)
[2023-05-01] MEDS: NYSTATIN CRE 100 MU/GM 15 GM TUBE TP SCH (22:07)
[2023-05-02] VITALS (32 sets, daily range): BP systolic 106–176; BP diastolic 38–76; PULSE 58–79; RESP 20–28; TEMP 96.3–97.8; O2SAT 88–96
[2023-05-02 05:08] LABS: BASOPHILS % (AUTO) 0.2 % (0.0-2.0); HEMATOCRIT 25.6 % (36-48); HEMOGLOBIN 8.5 g/dL (12.0-16.0); LYMPHOCYTES # (AUTO) 0.2 K/uL (2.5-16.5); LYMPHOCYTES % (AUTO) 1.9 % (20.5-51.1); MEAN CORPUSCULAR HEMOGLOBIN 31 pg (27-31); MEAN CORPUSCULAR HGB CONC 33 g/dL (33-37); MEAN CORPUSCULAR VOLUME 92.3 fL (80-94); MONOCYTES # (AUTO) 0.4 K/uL (0.8-1.0); MONOCYTES % (AUTO) 3.4 % (1.7-9.3); NEUTROPHILS # (AUTO) 11.3 K/uL (1.8-7.7); NEUTROPHILS % (AUTO) 94.5 % (42.2-75.2); PLATELET COUNT (AUTO) 89 K/uL (140-450); RED BLOOD CELL COUNT(AUTO) 2.77 MIL/uL (4.20-5.40); RED CELL DISTRIBUTION WIDTH 24.3 % (11.6-13.7)
[2023-05-02 05:27] LABS: ANION GAP 23.6 (8-16); CALCIUM 8.3 mg/dL (8.5-10.1); CARBON DIOXIDE 18.1 mmol/L (21-32); POTASSIUM 3.7 mmol/L (3.5-5.1)
[2023-05-02 05:31] LABS: CREATININE 5.2 mg/dL (0.6-1.3)
[2023-05-02 05:34] LABS: MAGNESIUM 2.6 mg/dL (1.8-2.4)
[2023-05-02 05:36] LABS: PHOSPHORUS 11.4 mg/dL (2.5-4.9)
[2023-05-02] MEDS: methylPREDNISolone SS 40 MG/ML VIAL IVP SCH (10:57)
[2023-05-03] VITALS (34 sets, daily range): BP systolic 110–152; BP diastolic 32–68; PULSE 68–93; RESP 20–28; TEMP 96–98.6; O2SAT 92–98
[2023-05-03 06:18] LABS: HEMATOCRIT 23.1 % (36-48); HEMOGLOBIN 7.8 g/dL (12.0-16.0); MEAN CORPUSCULAR HEMOGLOBIN 32 pg (27-31); MEAN CORPUSCULAR HGB CONC 34 g/dL (33-37); MEAN CORPUSCULAR VOLUME 93.8 fL (80-94); PLATELET COUNT (AUTO) 68 K/uL (140-450); RED BLOOD CELL COUNT(AUTO) 2.46 MIL/uL (4.20-5.40); RED CELL DISTRIBUTION WIDTH 25.6 % (11.6-13.7); WHITE BLOOD COUNT (AUTO) 8.5 K/uL (4.8-10.8)
[2023-05-03 06:20] LABS: MAGNESIUM 2.6 mg/dL (1.8-2.4)
[2023-05-03 06:28] LABS: PHOSPHORUS 11.9 mg/dL (2.5-4.9)
[2023-05-03 06:41] LABS: ANION GAP 27.6 (8-16); CALCIUM 8.3 mg/dL (8.5-10.1); CARBON DIOXIDE 15.5 mmol/L (21-32); POTASSIUM 4.1 mmol/L (3.5-5.1)
[2023-05-03 06:44] LABS: CREATININE 5.4 mg/dL (0.6-1.3)
[2023-05-03 08:30] LABS: BASOPHILS % (MANUAL) 0 % (0-2); BLASTS, MANUAL % 0 % (0-0); EOSINOPHILS % (MANUAL) 0 % (0-4); LYMPHOCYTES % (MANUAL) 1 % (20-46); METAMYELOCYTES % 0 % (0-0); MONOCYTES % (MANUAL) 1 % (5-12); MYELOCYTES % 0 % (0-0); OTHER CELLS,MANUAL % 0 (0-0); PLASMA CELLS 0; PLATELET ESTIMATE DECREASED; PROMYELOCYTES % 0 % (0-0); SMUDGE CELLS 0
[2023-05-03 08:31] LABS: ANISOCYTOSIS 1+; OVALOCYTES 1+; POLYCHROMASIA 1+
[2023-05-03] MEDS: SODIUM BICARBONATE 8.4% PFS 50 MEQ/50 ML SYR IVP SCH (13:02)
[2023-05-04] VITALS (32 sets, daily range): BP systolic 102–166; BP diastolic 38–89; PULSE 80–97; RESP 20–25; TEMP 96.7–98; O2SAT 95–100
[2023-05-04 06:18] LABS: BASOPHILS % (AUTO) 0.3 % (0.0-2.0); LYMPHOCYTES # (AUTO) 0.1 K/uL (2.5-16.5); LYMPHOCYTES % (AUTO) 1.3 % (20.5-51.1); MEAN CORPUSCULAR HEMOGLOBIN 32 pg (27-31); MEAN CORPUSCULAR HGB CONC 34 g/dL (33-37); MEAN CORPUSCULAR VOLUME 93.3 fL (80-94); MONOCYTES # (AUTO) 0.2 K/uL (0.8-1.0); MONOCYTES % (AUTO) 4.1 % (1.7-9.3); NEUTROPHILS # (AUTO) 5.6 K/uL (1.8-7.7); NEUTROPHILS % (AUTO) 94.3 % (42.2-75.2); PLATELET COUNT (AUTO) 45 K/uL (140-450); RED BLOOD CELL COUNT(AUTO) 1.94 MIL/uL (4.20-5.40); RED CELL DISTRIBUTION WIDTH 25.3 % (11.6-13.7); WHITE BLOOD COUNT (AUTO) 5.9 K/uL (4.8-10.8)
[2023-05-04 06:52] LABS: HEMATOCRIT 18.1 % (36-48); HEMOGLOBIN 6.2 g/dL (12.0-16.0)
[2023-05-04 06:59] LABS: MAGNESIUM 2.5 mg/dL (1.8-2.4)
[2023-05-04 07:03] LABS: PHOSPHORUS 11.8 mg/dL (2.5-4.9)
[2023-05-04 07:09] LABS: ANION GAP 27.5 (8-16); CALCIUM 8.5 mg/dL (8.5-10.1); CARBON DIOXIDE 18.5 mmol/L (21-32)
[2023-05-04 07:50] LABS: CREATININE 5.7 mg/dL (0.6-1.3)
[2023-05-04] MEDS: DEXT 5% / NACL 0.45% 1,000 ML IV SCH (09:32)
[2023-05-04 15:51] LABS: BASOPHILS % (AUTO) 0.7 % (0.0-2.0); HEMATOCRIT 20.5 % (36-48); LYMPHOCYTES # (AUTO) 0.1 K/uL (2.5-16.5); LYMPHOCYTES % (AUTO) 1.6 % (20.5-51.1); MEAN CORPUSCULAR HEMOGLOBIN 32 pg (27-31); MEAN CORPUSCULAR HGB CONC 34 g/dL (33-37); MONOCYTES # (AUTO) 0.2 K/uL (0.8-1.0); MONOCYTES % (AUTO) 3.7 % (1.7-9.3); NEUTROPHILS # (AUTO) 4.8 K/uL (1.8-7.7); PLATELET COUNT (AUTO) 35 K/uL (140-450); RED BLOOD CELL COUNT(AUTO) 2.23 MIL/uL (4.20-5.40); WHITE BLOOD COUNT (AUTO) 5.1 K/uL (4.8-10.8)
[2023-05-05] VITALS (29 sets, daily range): BP systolic 111–161; BP diastolic 34–75; PULSE 78–104; RESP 20–30; TEMP 97.1–98; O2SAT 91–100
[2023-05-05 06:49] LABS: ALBUMIN 1.3 g/dL (3.4-5.0); ANION GAP 25.5 (8-16); CALCIUM 8.5 mg/dL (8.5-10.1); CARBON DIOXIDE 20.5 mmol/L (21-32); TOTAL BILIRUBIN 1.1 mg/dL (0.0-1.0); TOTAL PROTEIN, SERUM 5.3 g/dL (6.4-8.2)
[2023-05-05 06:51] LABS: CREATININE 5.8 mg/dL (0.6-1.3)
[2023-05-05 06:55] LABS: MEAN CORPUSCULAR HEMOGLOBIN 32 pg (27-31); MEAN CORPUSCULAR HGB CONC 34 g/dL (33-37); MEAN CORPUSCULAR VOLUME 92.9 fL (80-94); PLATELET COUNT (AUTO) 45 K/uL (140-450); RED BLOOD CELL COUNT(AUTO) 2.05 MIL/uL (4.20-5.40); RED CELL DISTRIBUTION WIDTH 21.7 % (11.6-13.7); WHITE BLOOD COUNT (AUTO) 6.4 K/uL (4.8-10.8)
[2023-05-05 07:57] LABS: HEMOGLOBIN 6.5 g/dL (12.0-16.0)
[2023-05-05 08:20] LABS: EOSINOPHILS % (MANUAL) 1 % (0-4); LYMPHOCYTES % (MANUAL) 4 % (20-46); MONOCYTES % (MANUAL) 6 % (5-12)
[2023-05-05] MEDS: DEXT 5% /NACL 0.9% 1,000 ML IV SCH (11:10)
[2023-05-05] MEDS: methylPREDNISolone SS 40 MG/ML VIAL IVP SCH (12:34)
[2023-05-05] MEDS: DEXT 5% / NACL 0.45% 1,000 ML IV SCH (19:06)
[2023-05-06] VITALS (12 sets, daily range): BP systolic 131–152; BP diastolic 33–47; PULSE 75–95; RESP 23–25; TEMP 96–97.3; O2SAT 91–100
[2023-05-06 06:56] LABS: ALBUMIN 1.2 g/dL (3.4-5.0); ANION GAP 28.1 (8-16); CALCIUM 8.2 mg/dL (8.5-10.1); CARBON DIOXIDE 18.6 mmol/L (21-32); POTASSIUM 3.7 mmol/L (3.5-5.1); TOTAL BILIRUBIN 1.3 mg/dL (0.0-1.0); TOTAL PROTEIN, SERUM 4.8 g/dL (6.4-8.2)
[2023-05-06 08:13] LABS: BASOPHILS % (AUTO) 0.1 % (0.0-2.0); LYMPHOCYTES # (AUTO) 0.1 K/uL (2.5-16.5); LYMPHOCYTES % (AUTO) 1.5 % (20.5-51.1); MEAN CORPUSCULAR HEMOGLOBIN 30 pg (27-31); MEAN CORPUSCULAR HGB CONC 34 g/dL (33-37); MEAN CORPUSCULAR VOLUME 86.3 fL (80-94); MONOCYTES # (AUTO) 0.3 K/uL (0.8-1.0); MONOCYTES % (AUTO) 4.3 % (1.7-9.3); NEUTROPHILS # (AUTO) 6.2 K/uL (1.8-7.7); NEUTROPHILS % (AUTO) 94.1 % (42.2-75.2); RED BLOOD CELL COUNT(AUTO) 2.31 MIL/uL (4.20-5.40); RED CELL DISTRIBUTION WIDTH 25.5 % (11.6-13.7); WHITE BLOOD COUNT (AUTO) 6.6 K/uL (4.8-10.8)
[2023-05-06 08:34] LABS: HEMOGLOBIN 6.9 g/dL (12.0-16.0)
[2023-05-06 08:35] LABS: PLATELET COUNT (AUTO) 29 K/uL (140-450)
[2023-05-06 17:08] LABS: HEMATOCRIT 24.8 % (36-48); HEMOGLOBIN 8.7 g/dL (12.0-16.0)
[2023-05-07] VITALS (19 sets, daily range): BP systolic 94–176; BP diastolic 29–64; PULSE 73–102; RESP 18–28; TEMP 96–98.9; O2SAT 91–100
[2023-05-07 07:30] LABS: ALBUMIN 1.3 g/dL (3.4-5.0); ANION GAP 28.5 (8-16); CALCIUM 8.3 mg/dL (8.5-10.1); CARBON DIOXIDE 18.2 mmol/L (21-32); POTASSIUM 3.7 mmol/L (3.5-5.1); TOTAL BILIRUBIN 1.8 mg/dL (0.0-1.0); TOTAL PROTEIN, SERUM 4.8 g/dL (6.4-8.2)
[2023-05-07 08:12] LABS: BASOPHILS % (AUTO) 0.2 % (0.0-2.0); EOSINOPHILS % (AUTO) 0.7 % (0.0-4.0); HEMATOCRIT 24.9 % (36-48); HEMOGLOBIN 8.7 g/dL (12.0-16.0); LYMPHOCYTES # (AUTO) 0.1 K/uL (2.5-16.5); LYMPHOCYTES % (AUTO) 2.9 % (20.5-51.1); MEAN CORPUSCULAR HEMOGLOBIN 30 pg (27-31); MEAN CORPUSCULAR HGB CONC 35 g/dL (33-37); MEAN CORPUSCULAR VOLUME 85.4 fL (80-94); MONOCYTES # (AUTO) 0.1 K/uL (0.8-1.0); MONOCYTES % (AUTO) 1.9 % (1.7-9.3); NEUTROPHILS # (AUTO) 3.4 K/uL (1.8-7.7); NEUTROPHILS % (AUTO) 94.3 % (42.2-75.2); RED BLOOD CELL COUNT(AUTO) 2.92 MIL/uL (4.20-5.40); RED CELL DISTRIBUTION WIDTH 21.8 % (11.6-13.7); WHITE BLOOD COUNT (AUTO) 3.6 K/uL (4.8-10.8)
[2023-05-07 09:04] LABS: PLATELET COUNT (AUTO) 22 K/uL (140-450)
[2023-05-08] VITALS (17 sets, daily range): BP systolic 76–152; BP diastolic 24–42; PULSE 42–109; RESP 20–31; TEMP 97.9–98.2; O2SAT 83–99
[2023-05-08 07:25] LABS: BASOPHILS % (AUTO) 0.2 % (0.0-2.0); EOSINOPHILS % (AUTO) 0.7 % (0.0-4.0); HEMATOCRIT 23.9 % (36-48); HEMOGLOBIN 8.3 g/dL (12.0-16.0); LYMPHOCYTES # (AUTO) 0.1 K/uL (2.5-16.5); LYMPHOCYTES % (AUTO) 10.3 % (20.5-51.1); MEAN CORPUSCULAR HEMOGLOBIN 30 pg (27-31); MEAN CORPUSCULAR HGB CONC 35 g/dL (33-37); MONOCYTES % (AUTO) 1.6 % (1.7-9.3); NEUTROPHILS # (AUTO) 0.6 K/uL (1.8-7.7); NEUTROPHILS % (AUTO) 87.2 % (42.2-75.2); RED BLOOD CELL COUNT(AUTO) 2.75 MIL/uL (4.20-5.40); RED CELL DISTRIBUTION WIDTH 21.2 % (11.6-13.7)
[2023-05-08 08:04] LABS: ANION GAP 30.8 (8-16); CALCIUM 8.3 mg/dL (8.5-10.1); CARBON DIOXIDE 14.7 mmol/L (21-32); POTASSIUM 3.5 mmol/L (3.5-5.1)
[2023-05-08 09:27] LABS: WHITE BLOOD COUNT (AUTO) 0.7 K/uL (4.8-10.8)
[2023-05-08 09:28] LABS: PLATELET COUNT (AUTO) 8 K/uL (140-450)
[2023-05-08] MEDS ORDERED: NOREPINEPHRINE 4 MG in DEXTROSE 5% 250 ML IV PRN (20:10)
[2023-05-08 20:41] LABS: BLOOD GAS PCO2 34.1 mmHg (35-45); BLOOD GAS PH 7.085 (7.35-7.45); BLOOD GAS PO2 80.9 mmHg (75-100)
[2023-05-08 20:42] LABS: BLOOD GAS BASE EXCESS -18.4 mmol/L (-2.0-2.0); BLOOD GAS O2 SAT% 90.9 % (92.0-98.5)
[2023-05-08] MEDS: SODIUM BICARBONATE 8.4% PFS 50 MEQ/50 ML SYR IVP SCH (21:14)
== END 2023-05-09 05:00 | DRG 130 ==
LOC: MED 19:56 → MTU 21:30 → MMU 22:34 → MIC 04-17 11:05 → MTU 04-21 17:20 → MIC 05-01 04:00 → MTU 05-06 12:21
PROVIDERS: ADMIT Internal Medicine; ATTEND Internal Medicine
PROC: 5A1955Z Respiratory Ventilation, Greater than 96 Consecutive Hours (ICD-10-PCS; principal; 2023-04-15)
PROC: 02HV33Z Insertion of Infusion Device into Superior Vena Cava, Percutaneous Approach (ICD-10-PCS; 2023-04-16)
PROC: 5A12012 Performance of Cardiac Output, Single, Manual (ICD-10-PCS; 2023-04-17)
PROC: 30233N1 Transfusion of Nonautologous Red Blood Cells into Peripheral Vein, Percutaneous Approach (ICD-10-PCS; 2023-04-18)
PROC: 4A00X4Z Measurement of Central Nervous Electrical Activity, External Approach (ICD-10-PCS; 2023-04-20)
PROC: 4A00X4Z Measurement of Central Nervous Electrical Activity, External Approach (ICD-10-PCS; 2023-05-03)
PROC: 0D20XUZ Change Feeding Device in Upper Intestinal Tract, External Approach (ICD-10-PCS; 2023-05-04)
PROC: 5A12012 Performance of Cardiac Output, Single, Manual (ICD-10-PCS; 2023-05-09)
DX: J15.1 Pneumonia due to Pseudomonas (principal); N17.0 Acute kidney failure with tubular necrosis; I50.23 Acute on chronic systolic (congestive) heart failure; L89.154 Pressure ulcer of sacral region, stage 4; J96.21 Acute and chronic respiratory failure with hypoxia; E72.20 Disorder of urea cycle metabolism, unspecified; G93.1 Anoxic brain damage, not elsewhere classified; R65.10 Systemic inflammatory response syndrome (SIRS) of non-infectious origin without acute organ dysfunction; J15.69 Pneumonia due to other Gram-negative bacteria; I27.20 Pulmonary hypertension, unspecified; J44.0 Chronic obstructive pulmonary disease with (acute) lower respiratory infection; I38 Endocarditis, valve unspecified; I13.2 Hypertensive heart and chronic kidney disease with heart failure and with stage 5 chronic kidney disease, or end stage renal disease; N18.6 End stage renal disease; Z93.0 Tracheostomy status; Z99.11 Dependence on respirator [ventilator] status; G93.89 Other specified disorders of brain; I46.9 Cardiac arrest, cause unspecified; N39.0 Urinary tract infection, site not specified; Z16.23 Resistance to quinolones and fluoroquinolones; I35.2 Nonrheumatic aortic (valve) stenosis with insufficiency; I35.8 Other nonrheumatic aortic valve disorders; K21.9 Gastro-esophageal reflux disease without esophagitis; I42.9 Cardiomyopathy, unspecified; D53.9 Nutritional anemia, unspecified; J44.9 Chronic obstructive pulmonary disease, unspecified; K76.82 Hepatic encephalopathy; R00.1 Bradycardia, unspecified; I44.7 Left bundle-branch block, unspecified; F41.9 Anxiety disorder, unspecified; G25.3 Myoclonus; K74.60 Unspecified cirrhosis of liver; I25.10 Atherosclerotic heart disease of native coronary artery without angina pectoris; R56.9 Unspecified convulsions; D72.819 Decreased white blood cell count, unspecified; Y95 Nosocomial condition; R13.10 Dysphagia, unspecified; Z86.74 Personal history of sudden cardiac arrest; Z93.1 Gastrostomy status; Z43.1 Encounter for attention to gastrostomy
CPT/HCPCS: 36415; 36430; 36600; 70450; 71045; 80048; 80053; 80076; 81001; 82140; 82272; 82803; 82948; 83605; 83735; 83880; 84100; 84484; 85018; 85025; 85610; 85730; 86886; 86900; 86901; 86920; 87040; 87070; 87081; 87086; 87186; 87205; 89220; 93005; 94002; 94003; 94640; 94761; 95816; 96374; 96375; 99285; 99291; C9113; J0360; J0461; J1160; J1940; J1953; J2060; J2270; J2543; J2920; J3475; J3490; J7060; J7612; J7644; P9016; Q0092; Q9967